=== PATIENT | male | born 1980 | race African-American/Black ===

== ENCOUNTER 2016-09-14 08:30 | Emergency (ER) ==
[2016-09-14 08:58] VITALS: BP 109/062
--- NOTE | 2016-09-14 09:19 | PROVIDER DOCUMENTATION ---
HPI-Abdominal Pain/GI Problem - General Source: patient - History of Present Illness-ABD Nature of Presenting Problems: Pt is a 36 yom no [facility] that presents to er with cc of hemorroids x 5 days with blood on toilet paper when wiping after having BM. Denies blood in stool,itching ,n,v. Abdominal Pain Onset Location: reports: other (rectum) Quality of Pain: reports: aching Severity in ED: reports: moderate Onset/Duration: reports: 5 days ago Timing: reports: still present Dark Stools Present?: reports: none noticed Rectal Bleeding: reports: bright red blood on paper Rectal Pain: reports: known hemorrhoids Bruising or Bleeding Gums?: No Similar Symptoms Previously?: Yes Recently seen or treated by another doctor?: No <Ceci Sheriff - Last Filed: 09/14/16 09:14> <Willam Watkins - Last Filed: 09/14/16 09:27> - General Chief Complaint: Hemorrhoids Stated Complaint: RECTAL BLEEDING Time Seen by Provider: 09/14/16 09:14 Allergies/Adverse Reactions: Patient Allergies Allergy/AdvReac Type Severity Reaction Status Date / Time No Known Allergies Allergy Verified 09/14/16 08:59 Home Medications: Home Medication List Medication Instructions Recorded Confirmed Last Taken Type Hydrocortisone Supp [Anusol-Hc 25 mg .SEE ORDER BID #20 supp 09/14/16 Unknown Rx Supp] Review of Systems - Adult - REVIEW OF SYSTEMS - ADULT Constitutional: denies: chills, fever, fatique Eyes: reports: no symptoms reported Ears, Nose, Mouth & Throat: reports: no symptoms reported Cardiovascular: denies: chest pain, heart murmur, irregular heart rate, orthopnea Respiratory: reports: no symptoms reported Gastrointestinal: reports: other (hemorroids). denies: hematemesis, constipation, difficulty swallowing, frequent heartburn, nausea, vomiting Genitourinary: reports: no symptoms reported Musculoskeletal: reports: no symptoms reported Integumentary: reports: no symptoms reported Neurological: reports: no symptoms reported Psychiatric: reports: no symptoms reported Endocrine: reports: no symptoms reported Hematologic/Lymphatic: reports: no symptoms reported Allergic/Immunologic: reports: no symptoms reported All Other Systems: Reviewed and Negative <Ceci Sheriff - Last Filed: 09/14/16 09:14> Past History - Adult - PAST MEDICAL HISTORY-ADULT Review of Records: reports: Nursing Assessment Review Major Childhood Illnesses: reports: denies history Cardiovascular: reports: denies history Other Conditions: reports: denies history - PRIOR SURGERIES/PROCEDURES Surgical/Procedure History: reports: none - PRIOR HOSPITALIZATIONS Prior Hospitalizations: reports: none - IMMUNIZATION STATUS Childhood Immunizations: See Nurse Assessment Flu Vaccine: See Nurse Assessment - FAMILY HISTORY Family History: reviewed, not pertinent - SOCIAL HISTORY Smoking: cigarettes, greater than 1 pack/day Provider spent 3-5 mins advising pt. on dangers of tobacco.: Discussed manners to quit use, and f/u contacts for add'l counseling. Substance Use: none/never Alcohol Use Frequency: never <Ceci Sheriff - Last Filed: 09/14/16 09:14> Physical Exam-General - PHYSICAL EXAM-ADULT Initial Vital Signs Reviewed: Yes - CONSTITUTIONAL General Appearance: appears well, alert, no apparent distress - EYES Eyes: PERRL/EOMI - NECK Neck: non-tender, full range of motion, supple, normal inspection - RESPIRATORY Respiratory: chest non-tender, lungs clear, normal breath sounds, no respiratory distress - CARDIOVASCULAR Cardiovascular: regular rate, rhythm, no edema, no gallop, no JVD, no murmur - GASTROINTESTINAL (ABDOMEN) Abdominal Exam: normal bowel sounds, non tender, soft, no organomegaly, no pulsatile mass - GENITOURINARY Rectal Exam: hemorrhoids (small external hemorrhoids). negative: black stool, decreased tone, mass - MUSCULOSKELETAL Back Exam: normal inspection, no CVA tenderness, no vertebral tenderness Extremity: normal range of motion, non-tender - SKIN Integumentary: normal color, normal turgor, warm/dry - PSYCHIATRIC Psych/Mental Status: normal mood/affect, normal thought content, normal thought process, oriented x 3 <Ceci Sheriff - Last Filed: 09/14/16 09:14> Progress - PLAN OF CARE/RESULTS Progress/Plan/Lab Results: Vital Signs - 24 hr 09/14/16 08:56 Temperature 97.6 F Pulse Rate 83 Respiratory 16 Rate Blood Pressure 109/062 O2 Sat by Pulse 98 Oximetry <Ceci Sheriff - Last Filed: 09/14/16 09:14> Departure - Departure Time of Disposition Order: :17 Certified Medical Emergency: Emergent <Ceci Sheriff - Last Filed: 09/14/16 09:14> - Departure Certified Medical Emergency: Emergent <Willam Watkins - Last Filed: 09/14/16 09:27> - Departure DIAGNOSIS: Hemorrhoid Qualifiers: Hemorrhoid type: residual hemorrhoidal skin tags Qualified Code(s): K64.4 - Residual hemorrhoidal skin tags Disposition: HOME 01 Condition: Stable Additional Instructions: Take suppositories twice a day as instructed ED Follow Up Instructions: You have been treated by a care provider in the Emergency Department. These instructions are being provided to you so you can have an understanding of how to care for yourself upon discharge. Upon discharge from the Emergency Department, you are responsible for making arrangements for follow-up care by a physician of your choice. Take all prescribed medications as directed. Return to the Emergency Department immediately for any new or worsening symptoms. You may call the Physician Referral phone number at [phone] to obtain a list of Physicians who are taking new patients. Prescriptions: Hydrocortisone Supp [Anusol-Hc Supp] 25 mg .SEE ORDER BID #20 supp Referrals: None,PCP [Primary Care Provider] - Attestation - Scribe Verification/Attestation Scribe:: Ceci Sheriff Acting as Scribe for:: Willam Watkins Scribe documention review:: This chart was documented by a scribe and accurately reflects the service the provider performed and the decisions made by the provider. <Ceci Sheriff - Last Filed: 09/14/16 09:14> Physician Attestation
== END 2016-09-14 09:36 | disposition home or self-care (01) ==
LOC: P.ED 08:30
DX: K64.4 Residual hemorrhoidal skin tags (principal); K62.5 Hemorrhage of anus and rectum; F17.210 Nicotine dependence, cigarettes, uncomplicated; Z71.6 Tobacco abuse counseling
CPT/HCPCS: 99282